=== PATIENT | female | born 1985 | race Caucasian/White ===

== ENCOUNTER 2018-11-22 17:10 | Emergency (ER) | payer SELFPAY ==
[~2018-11-22] VITALS: Ht 154.9 cm; Wt 45.5 kg
[2018-11-22 17:15] VITALS: Ht 154.9 cm; Wt 45.5 kg
[2018-11-22 17:31] LABS: HCG URINE NEGATIVE (NEGATIVE)
[2018-11-22 17:39] LABS: BASOPHILS 0.2 % (0-2); EOSINOPHILS 0.1 % (0-7); HEMOGLOBIN 12.2 g/dL (12-16); IMMATURE GRANULOCYTES 0.3 % (0-5); LYMPHOCYTES 13.8 % (15-50); MCH 29.6 pg (26.0-34.0); MCHC 34.9 g/dL (31.0-37.0); MONOCYTES 8.5 % (2-11); NEUTROPHILS 77.1 % (40-80); RBC 4.12 10x6/uL (4.00-5.40); RDW 14.7 % (11.5-14.5); WBC 8.7 10x3/uL (4.8-10.8)
[2018-11-22 17:46] LABS: PLATELET COUNT 162 10x3/uL (130-400)
[2018-11-22 18:00] LABS: ALBUMIN 3.6 g/dL (3.4-5.0); ANION GAP 15.3 mmol/L (8-16); BILIRUBIN - TOTAL 0.29 mg/dL (0.2-1.3); CALCIUM 8.6 mg/dL (8.5-10.1); CARBON DIOXIDE 24.8 mmol/L (21.0-32.0); CREATININE - SERUM 1.1 mg/dL (0.6-1.3); POTASSIUM - SERUM 4.1 mmol/L (3.5-5.1); PROTEIN - SERUM 8.4 g/dL (6.4-8.2)
[2018-11-22 18:45] LABS: APPEARANCE CLEAR (CLEAR); COLOR YELLOW (YELLOW)
[2018-11-22 18:46] LABS: BILIRUBIN NEGATIVE (NEGATIVE); GLUCOSE NEGATIVE (NEGATIVE); KETONE NEGATIVE (NEGATIVE); NITRITE NEGATIVE (NEGATIVE); PROTEIN NEGATIVE (NEGATIVE); SPECIFIC GRAVITY 1.015 (1.005-1.020); UROBILINOGEN NORMAL (NORMAL)
[2018-11-22 19:01] LABS: UDS - AMPHET NEGATIVE QUAL (NEGATIVE); UDS - BARB NEGATIVE QUAL (NEGATIVE); UDS - BENZO NEGATIVE QUAL (NEGATIVE); UDS - COCAINE NEGATIVE QUAL (NEGATIVE); UDS - OPIATE NEGATIVE QUAL (NEGATIVE); UDS - PCP NEGATIVE QUAL (NEGATIVE); UDS - THC NEGATIVE QUAL (NEGATIVE)
[2018-11-22] MEDS ORDERED: ZPAK PO (19:59)
[2018-11-22] MEDS ORDERED: ALBUTEROL SULF8.5 GM INH (20:00)
[2018-11-22] MEDS ORDERED: TESSALON PERLE100 MG PO (20:00)
[2018-11-22] MEDS ORDERED: EC-NAPROSYN500 MG PO (20:00)
[2018-11-22 21:31] VITALS: BP 108/62
== END 2018-11-22 20:58 | disposition home or self-care (01) ==
LOC: D.ER 17:10
PROVIDERS: Family Medicine
DX: S29.011A Strain of muscle and tendon of front wall of thorax, initial encounter (principal); X58.XXXA Exposure to other specified factors, initial encounter; Y93.89 Activity, other specified; Y92.019 Unspecified place in single-family (private) house as the place of occurrence of the external cause; F17.200 Nicotine dependence, unspecified, uncomplicated